=== PATIENT | female | born 1930 | race Caucasian/White ===

== ENCOUNTER 2016-11-07 11:53 | Emergency (ER) | payer OTHER ==
[2016-11-07] MEDS ORDERED: IBUPROFEN 200 MG TAB PO ONE (12:32)
--- NOTE | 2016-11-07 12:43 | UCPHY ---
H & P Time Seen by Provider: 11/07/16 12:28 Patient Type: New HPI/ROS: CHIEF COMPLAINT: Discharge from right eye, conjunctival irritation HISTORY OF PRESENT ILLNESS: The patient presents to the urgent care for evaluation of a 2 day history of increasing discharging and conjunctival irritation involving her right eye. The patient does not were contact lenses. She has no history of any dermal rashes. 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 She is reportedly scheduled to see her dentist for evaluation of this condition tomorrow. The patient denies any chest pain or shortness of breath. She does have a history of Parkinson's disease. The patient denies recent fall or history of ocular trauma. She denies recent upper respiratory infection. REVIEW OF SYSTEMS: A comprehensive 10 point review of systems is otherwise negative aside from elements mentioned in the history of present illness. Past Medical/Surgical History: Past medical history: Parkinson's disease, occasional urinary tract infections Smoking Status: Never smoked Physical Exam: General Appearance: Elderly female, no acute distress Eyes: Conjunctival injection and discharge noted from the right eye consistent with a mild conjunctivitis ENT, Mouth: Mucous membranes moist, no evidence of a intraoral infection Respiratory: There are no retractions, lungs are clear to auscultation Cardiovascular: Regular rate and rhythm Gastrointestinal: Abdomen is soft and nontender, no masses, bowel sounds normal Neurological: 5/5 strength noted all 4 extremities, tremor consistent with her history of underlying Parkinson's disease Skin: Warm and dry, no rashes Musculoskeletal: Neck is supple nontender Extremities: symmetrical, full range of motion Constitutional: Initial Vital Signs Temperature (C) 36.7 C 11/07/16 12:17 Heart Rate 57 L 11/07/16 12:17 Respiratory Rate 16 11/07/16 12:17 Blood Pressure 146/81 H 11/07/16 12:17 O2 Sat (%) 95 11/07/16 12:17 O2 Delivery Mode Room Air Allergies/Adverse Reactions: No Known Allergies Allergy (Verified 11/07/16 12:16) Home Medications: Medication Instructions Recorded Antidepressant 11/07/16 Insomnia Med 11/07/16 Ofloxacin 0.3% [Ocuflox 0.3% (RX)] 1 drops RTEYE 5XD #1 btl 11/07/16 Parkison's Med 11/07/16 Medical Decision Making ED Course/Re-evaluation: The patient presents to the urgent care for evaluation of conjunctival irritation and discharge for the past day. The patient has no evidence of a upper respiratory infection. She has no evidence of zoster or clinical evidence of a significant cellulitis/periorbital cellulitis. The patient will be started on Ocuflox eyedrops 1 drop 5 times a day for the next week for management of her conjunctivitis. The patient is instructed to follow up with her primary care provider Dr. Johnathan Rust for a recheck in the next week. She will see her dentist tomorrow for evaluation of her chronic gingival irritation. Differential Diagnosis: Differential diagnosis considered includes conjunctivitis, corneal abrasion, upper respiratory infection, herpes zoster Departure - Departure Disposition: Home, Routine, Self-Care Clinical Impression: Conjunctivitis Condition: Good Instructions: Conjunctivitis (ED) Additional Instructions: 1. Apply 1 antibiotic eye drop to right eye 4 to 5 times a day for the next week. 2. Please follow up as scheduled tomorrow with your dentist. 3. Please follow up with your primary care provider for any unimproved symptoms. Referrals: Johnathan Rust MD [Primary Care Provider] - As per Instructions Prescriptions: Ofloxacin 0.3% [Ocuflox 0.3% (RX)] 1 drops RTEYE 5XD #1 btl - PQRS PQRS Measurement: Not applicable
[2016-11-07 15:13] VITALS: BP 146/81; PULSE 57; RESP 16; TEMP 98.1; O2SAT 95
== END 2016-11-07 13:05 | disposition home or self-care (01) ==
LOC: CED 11:53
DX: H10.9 Unspecified conjunctivitis (principal); G20 Parkinson's disease; Z87.440 Personal history of urinary (tract) infections
CPT/HCPCS: G0463-PO

== ENCOUNTER → 2018-06-30 | Outpatient (CLI) | payer OTHER, MEDICARE | LOC: BHFA 10:56 | PROVIDERS: ATTEND Internal Medicine Cardiovascular Disease | DX: R00.1 Bradycardia, unspecified (principal) ==